=== PATIENT | male | born 1995 | race Hispanic/Latino ===

== ENCOUNTER 2022-10-03 20:22 | Emergency (ER) | payer OTHER ==
[~2022-10-03] VITALS: Ht 175.3 cm; Wt 101.6 kg
[2022-10-03] MEDS ORDERED: CEPHALEXIN 500 MG CAPSULE PO ONE (23:00)
[2022-10-03] MEDS ORDERED: TETANUS/DIPHTHERIA TOXOID [ADULT] 0.5 ML VIAL IM ONE (23:00)
[2022-10-04] MEDS ORDERED: CEPH500B PO (01:16)
[2022-10-04] MEDS ORDERED: IBUP-2070 PO (01:16)
[2022-10-04 02:10] VITALS: BP 138/81; PULSE 84; RESP 16; O2SAT 98
== END 2022-10-04 02:15 | disposition home or self-care (01) ==
LOC: EDH 20:22
DX: S01.112A Laceration without foreign body of left eyelid and periocular area, initial encounter (principal); S60.221A Contusion of right hand, initial encounter; Z79.899 Other long term (current) drug therapy; Z88.8 Allergy status to other drugs, medicaments and biological substances; Y08.89XA Assault by other specified means, initial encounter; Y93.89 Activity, other specified; Y92.89 Other specified places as the place of occurrence of the external cause; Y99.8 Other external cause status
CPT/HCPCS: 12013; 70450; 70486; 72125; 73130; 90471; 90714